=== PATIENT | male | born 1960 | race Asian ===

== ENCOUNTER → 2019-06-03 | Outpatient (CLI) | payer MEDICAID | END | disposition home or self-care (01) | LOC: RADPV 14:29 | PROVIDERS: ATTEND Family Medicine | DX: R05 Cough (principal) ==

== ENCOUNTER → 2019-11-05 | Outpatient (CLI) | payer MEDICAID, OTHER ==
[~2019-11-05] MED LIST: AMOX1TAB16 PO; GLIP10 PO; GLIP5 PO; LINA5TAB PO; LOSA25TA71 PO; MELO-106 PO; METF-960 PO; SIMV-259 PO; SIMV-260 PO
[2019-11-06 06:57] LABS: GLUCOMETER DEV NAME(LOC) 5N.2; GLUCOSE,POINT OF CARE 201 MG/DL (70-110)
[2019-11-06 11:51] LABS: GLUCOMETER DEV NAME(LOC) 5N.1; GLUCOSE,POINT OF CARE 214 MG/DL (70-110)
[2019-11-06 17:54] LABS: GLUCOMETER DEV NAME(LOC) 5N.1; GLUCOSE,POINT OF CARE 209 MG/DL (70-110)
== END | disposition home or self-care (01) ==
LOC: RADPV 12:12
PROVIDERS: ATTEND Family Medicine
DX: J18.1 Lobar pneumonia, unspecified organism (principal); M19.90 Unspecified osteoarthritis, unspecified site